=== PATIENT | male | born 2000 | race Caucasian/White ===

== ENCOUNTER 2023-03-10 23:33 | Emergency (ER) | payer BC, SELFPAY ==
[2023-03-10 23:37] VITALS: BP 160/92; PULSE 124; RESP 16; TEMP 36.7; O2SAT 99; BMI 22.7
[2023-03-10 23:43] VITALS: PULSE 107; RESP 20
[2023-03-10 23:45] VITALS: BP 164/97; PULSE 112; RESP 18
--- NOTE | 2023-03-10 23:47 | ECG_ITS ---
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
[2023-03-10 23:48] VITALS: PULSE 110
[2023-03-10 23:50] VITALS: PULSE 107; RESP 14
--- NOTE | 2023-03-10 23:51 | PC.NURSE ---
Pt presents to ER for intermittent episodes of dizziness/weakness associated with warmness and nubness/tingling to fingers and toes Pt states this has been happening for a few days but is becoming more and more common Pt states he was lying in bed tonight and began feeling warm throughout his body and then the symptoms worsen At time of arrival pt is nervous but has no other symptoms Pt denies a hx of cardiac issues and anxiety Pt states he did have a heart murmur when he was young but he was told it had disappeared. Pt takes no medications and has no health history but is aware that both of his parents have high BP
[2023-03-11] VITALS (20 sets, daily range): BP systolic 120–148; BP diastolic 65–93; PULSE 65–120; RESP 7–22; O2SAT 96–99
[2023-03-11 00:46] LABS: Basophils Absolute Auto 0.1 10^3/uL (0.0-0.1); Basophils Percent Auto 1.2 % (0.2-2.0); Eosinophils Absolute Auto 0.2 10^3/uL (0.0-0.7); Eosinophils Percent Auto 3.6 % (0.9-7.0); Hematocrit 43.4 % (42.0-54.0); Immature Granulocytes Abs Auto 0.01 10^3/uL (0.00-0.03); Immature Granulocytes Pct Auto 0.2 % (0.0-0.5); Lymphocytes Absolute Auto 2.9 10^3/uL (1.2-3.8); Lymphocytes Percent Auto 43.8 % (20.5-60.0); Mean Corpuscular HGB Conc 34.6 g/dL (29.9-35.2); Mean Corpuscular Hemoglobin 29.4 pg (25.9-34.0); Mean Corpuscular Volume 84.9 fL (80.0-94.0); Mean Platelet Volume 10.2 fL (9.5-13.5); Monocytes Absolute Auto 0.6 10^3/uL (0.3-0.8); Monocytes Percent Auto 8.3 % (1.7-12.0); Neutrophils Absolute Auto 2.9 10^3/uL (1.4-6.5); Neutrophils Percent Auto 42.9 % (43.0-75.0); Platelet Count 236 10^3/uL (150-450); Red Blood Count 5.11 10^6/uL (4.70-6.10); Red Cell Distribution Width 11.4 % (11.0-15.0); White Blood Count 6.7 10^3/uL (4.0-11.0)
[2023-03-11] MEDS: 0.9 % SODIUM CHLORIDE 1,000 ML 1000 ML IV ×2 (00:52→02:20)
[2023-03-11 01:02] LABS: D Dimer <0.19 mg/L FEU (<=0.59)
[2023-03-11 01:03] LABS: Influenza Virus A Antigen Negative; Influenza Virus B Antigen Negative; Internal Control Within Normal Limits; SARS-CoV-2 Ag NEGATIVE (NEGATIVE)
--- NOTE | 2023-03-11 01:11 | ED.GENADUL1 ---
HPI - General Adult General Chief complaint: Weakness Stated complaint: GENERAL WEAKNESS Time Seen by Provider: 03/10/23 23:54 Source: patient and family Mode of arrival: walk-in Limitations: no limitations History of Present Illness HPI narrative: This 22-year-old male presents for evaluation of episodes of dizziness that have been occurring for the past several days. The patient states that twice while driving to work in the morning he started feeling some tingling in his toes and hands and then started feeling dizzy. He states he feels like the room is spinning. At one point he felt he may need to pull worker because he was going to pass out. He has not actually passed out. Earlier this evening after getting into bed and starting to warm up he had a similar episode while lying down. He had some mild chest pressure during the episode this morning. While lying down earlier he felt that he may vomit or need to have a bowel movement when the symptoms of dizziness were occurring. He has not had a fever. He denies any headache. He had a heart murmur as a child apparently. He denies any abdominal pain. He does use a vape pen. He denies any drug or alcohol use. 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 He denies any shortness of breath. He does not think that he has had Covid 19. He has no lower extremity pain or swelling. He does admit that when he gets up to go to work in the morning he does not have anything to eat or drink. He was formally drinking 3 energy drinks a day but currently has cut back on those and only has them on occasion and only one a day. Related Data Home Medications Medication Instructions Recorded Confirmed No Known Home Medications 03/10/23 03/10/23 Allergies Allergy/AdvReac Type Severity Reaction Status Date / Time No Known Drug Allergies Allergy Verified 03/10/23 23:41 Review of Systems ROS Status of ROS 10 or more systems reviewed and unremarkable except as noted in history and below [facility] Social History Smoking status: Current every day smoker Exam Narrative Exam Narrative: Nurses note and vital signs reviewed and patient is not hypoxic. Blood pressure was noted to be mildly elevated and the patient was tachycardic upon arrival with a pulse in the 120s. During my exam the pulse was in the 90s and the patient was asked to sit up and his pulse went to 1:15, upon standing his pulse went up into the 120s General: The patient appears well and in no apparent distress. Patient is resting comfortably on cart. Skin: Warm, dry, no pallor noted. There is no rash noted. Head: Normocephalic, atraumatic Eye: Normal conjunctiva, no drainage, EOMI. PERRL Ears, Nose, Mouth, and Throat: oral mucosa is moist. Nares patent. Mouth without vesicles. Ear canals patent. Tm's without Erythema Cardiovascular: Regular Rate and Rhythm S1S2, no murmurs appreciated, pulses are brisk and equal bilaterally, pulse increased with sitting and standing Respiratory: Patient is in no distress, no accessory muscle use, lungs are clear to auscultation, no wheezing, rales or rhonchi Back: non-tender, no CVA tenderness bilaterally to percussion. GI: Normal bowel sounds, no tenderness to palpation, no masses appreciated. No rebound, guarding, or rigidity noted. Musculoskeletal: The patient has no evidence of calf tenderness, no pitting edema, symmetrical pulses noted bilaterally Neurological: A&O x4, normal speech Psychiatric: Cooperative Constitutional Vital Signs, click to edit/add: Last Vital Signs Temp 98.1 F 03/10/23 23:37 Pulse 97 H 03/11/23 03:11 Resp 18 03/11/23 03:11 BP 138/77 03/11/23 03:00 Pulse Ox 97 03/11/23 02:50 O2 Del Method Room Air 03/10/23 23:37 Course Vital Signs Vital signs: Vital Signs Temperature 98.1 F 03/10/23 23:37 Pulse Rate 124 H 03/10/23 23:37 Respiratory Rate 16 03/10/23 23:37 Blood Pressure 160/92 H 03/10/23 23:37 Pulse Oximetry 99 03/10/23 23:37 Oxygen Delivery Method Room Air 03/10/23 23:37 Temperature 98.1 F 03/10/23 23:37 Pulse Rate 97 H 03/11/23 03:11 Respiratory Rate 18 03/11/23 03:11 Blood Pressure 138/77 03/11/23 03:00 Pulse Oximetry 97 03/11/23 02:50 Oxygen Delivery Method Room Air 03/10/23 23:37 Medical Decision Making MDM Narrative Medical decision making narrative: This 22-year-old male with a history of a heart murmur as a child requiring sports physicals prior to being able to play sports presents for evaluation of several days of episodes where he has episodes of dizziness. He does not recall ever having had an echocardiogram,. He describes that he was driving on his way to work earlier this week and started having some tingling in his feet and hands and then felt dizzy like he was going to pass out. He did not ultimately pass out and the symptoms resolved. He has had several additional episodes since that time. He denies any chest pain or shortness of breath. He uses a Vape pen but does not smoke cigarettes. He denies alcohol or drug use. He describes these symptoms that occur with change in temperature such as when he is getting warm. He is not having any abdominal pain or back pain. He has not had a fever. He recently moved from [facility] to the [facility] and does not have a local family physician. He is not currently followed by a players club representative. He was noted to be tachycardic at triage. An EKG was done as a sinus tachycardia at 1 10 bpm with a right axis deviation and nonspecific ST changes. These are likely chronic in nature. I do not have a prior EKG for comparison. He was noted to have orthostatic vital signs and with sitting his pulse increased and was standing his pulse increased even more. He did not become dizzy or syncopal with the increase in his pulse. I was unable to appreciate any heart murmur and his pulses were brisk and equal bilaterally. He was given a liter of IV fluid and his pulse did normalize while sitting and lying down but again increased with standing. He was given an additional liter of normal saline. At rest the patient's pulses in the 70s and was standing it goes up to 100. Routine labs are reviewed. He has a normal white count and hemoglobin. His electrolytes are normal. He has a normal troponin and d-dimer. Thyroid-stimulating hormone and magnesium are also normal. CXR is normal. He has not had any episodes of dizziness while in the emergency department. 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 The EKG itself was regular sinus tachycardia. I explained to the patient that I suspect that he either has POTS or some degree of cardiac arrhythmia. He was referred to our local players club representative. He was given a dose of magnesium prior to discharge and a prescription for magnesium to use on a daily basis for the next 30 days. I explained to him that he may require some cardiac monitoring device. I suggested that he rest, not use any caffeinated products, quit vaping and return to emergency department for worsening symptoms, syncope, chest pain or any concerns. Medical Records Medical records narrative: [place] [address] XRay Report Signed Patient: GRETA ELMORE MR#: [id number] : 2000 Acct:[id number] Age/Sex: 22 / M ADM Date: 03/10/23 Loc: ER Attending Dr: Ordering Physician: Juan Edwards Date of Service: 03/11/23 Procedure(s): XR chest 2V Accession Number(s): [id number] cc: Juan Edwards; Physician,Non-Staff M.D.~ The [place] [id number] Patient Name: GRETA ELMORE MRN: [id number] date: 2000 Sex: M Assigned Patient Location: ER Current Patient Location: ER Accession/Order Number: [id number] Exam Date: 03/11/2023 02:18 Report Date: 03/11/2023 03:09 At the request of: JUAN EDWARDS Procedure: XR chest 2V EXAM: XR chest 2V HISTORY: Dizziness COMPARISON: None. TECHNIQUE: Frontal and lateral chest radiographs. FINDINGS: The heart, mediastinum and pulmonary vascularity are within normal limits. The lungs and pleural spaces are clear. The bony thorax is intact and unremarkable. XR/XR chest 2V IMPRESSION: Negative chest x-rays. Lab Data Lab results reviewed: Yes I reviewed the patient's lab results Labs: Lab Results 03/11/23 03/11/23 Range/Units 00:34 00:35 WBC 6.7 (4.0-11.0) 10^3/uL RBC 5.11 (4.70-6.10) 10^6/uL Hgb 15.0 (14.0-18.0) g/dL Hct 43.4 (42.0-54.0) % MCV 84.9 (80.0-94.0) fL MCH 29.4 (25.9-34.0) pg MCHC 34.6 (29.9-35.2) g/dL RDW 11.4 (11.0-15.0) % Plt Count 236 (150-450) 10^3/uL MPV 10.2 (9.5-13.5) fL Neut % (Auto) 42.9 L (43.0-75.0) % Lymph % (Auto) 43.8 (20.5-60.0) % [place] % (Auto) 8.3 (1.7-12.0) % Eos % (Auto) 3.6 (0.9-7.0) % Baso % (Auto) 1.2 (0.2-2.0) % Neut # (Auto) 2.9 (1.4-6.5) 10^3/uL Lymph # (Auto) 2.9 (1.2-3.8) 10^3/uL [place] # (Auto) 0.6 (0.3-0.8) 10^3/uL Eos # (Auto) 0.2 (0.0-0.7) 10^3/uL Baso # (Auto) 0.1 (0.0-0.1) 10^3/uL Abs Immat Gran (auto) 0.01 (0.00-0.03) 10^3/uL Imm/Tot Granulo (auto) 0.2 (0.0-0.5) % D-Dimer <0.19 (<=0.59) mg/L FEU Sodium 142 (136-145) mmol/L Potassium 3.7 (3.5-5.1) mmol/L Chloride 104 (98-107) mmol/L Carbon Dioxide 28.6 (21.0-32.0) mmol/L Anion Gap 13.1 BUN 16.0 (7.0-18.0) mg/dL Creatinine 0.99 (0.70-1.30) mg/dL Est GFR ( Amer) >60 (>=60) Est GFR (Non-Af Amer) >60 (>=60) BUN/Creatinine Ratio 16.2 Glucose 119 H (74-106) mg/dL Calcium 9.6 (8.5-10.1) mg/dL Magnesium 2.2 (1.8-2.4) mg/dL Total Bilirubin 0.4 (0.2-1.0) mg/dL AST 13 L (15-37) U/L ALT 21 (16-63) U/L Alkaline Phosphatase 70 (46-116) U/L Troponin I High Sens <4.0 L (4.0-76.1) pg/mL Total Protein 7.4 (6.4-8.2) g/dL Albumin 4.3 (3.4-5.0) g/dL Globulin 3.1 g/dL Albumin/Globulin Ratio 1.4 TSH & Free T4 Interp 1.249 (0.358-3.740) uIU/mL Urine Color Lt. yellow (YELLOW) Urine Clarity Clear (CLEAR) Urine pH 7.0 (5.0-9.0) Ur Specific [place] <=1.005 A (1.005-1.025) Urine Protein Negative (NEG/TRACE) mg/dL Urine Glucose (UA) Negative (NEGATIVE) mg/dL Urine Ketones Negative (NEGATIVE) mg/dL Urine Occult Blood Negative (NEGATIVE) Urine Nitrite Negative (NEGATIVE) Urine Bilirubin Negative (NEGATIVE) Urine Urobilinogen 0.2 (0.2-1.0) EU/dL Ur Leukocyte Esterase Negative (NEGATIVE) Influenza Type A Ag Negative Influenza Type B Ag Negative SARS-CoV-2 Ag (CV2AG) Negative (NEGATIVE) ECG Data Attestation: I personally reviewed and interpreted this ECG as follows: (Sinus tachycardia at 110 beats for minute, nonspecific ST changes, right axis deviation, no acute ST segment elevation, moderate ST depression is noted in leads 2 and 3 aVF V4 V5 V6, no prior EKGs are available for comparison) Discharge Plan Discharge Chief Complaint: Weakness Clinical Impression: Dizziness, Sinus arrhythmia Patient Disposition: Home, Self-Care Time of Disposition Decision: 03:19 Condition: Good Prescriptions / Home Meds: No Action No Known Home Medications Instructions: Dizziness (ED), POTS (Postural Orthostatic Tachycardia Syndrome) (ED) Stand Alone Forms: Portal Instructions Referrals: Stacey Denney MD [Physician] - As soon as possible (Hx heart murmur, symptomatic sinus arrythmia) Physician,Non-Staff, [Primary Care Provider] - 1 week Discharge Date/Time: 03/11/23 03:45
[2023-03-11 01:44] LABS: Bilirubin Urine NEGATIVE (NEGATIVE); Blood Urine NEGATIVE (NEGATIVE); Clarity Urine CLEAR (CLEAR); Color Urine LT. YELLOW (YELLOW); Glucose Urine UA NEGATIVE (NEGATIVE); Ketones Urine NEGATIVE (NEGATIVE); Leukocyte Esterase Urine NEGATIVE (NEGATIVE); Nitrite Urine NEGATIVE (NEGATIVE); Protein Urine NEGATIVE (NEG/TRACE); Specific Gravity Urine <=1.005 (1.005-1.025); Urobilinogen Urine 0.2 EU/dL (0.2-1.0)
[2023-03-11 01:47] LABS: Urine Microscopic Indicated NO
--- NOTE | 2023-03-11 02:08 | XR_ITS ---
The [place] [id number] Patient Name: GRETA ELMORE MRN: [id number] date: 2000 Sex: M Assigned Patient Location: ER Current Patient Location: ER Accession/Order Number: [id number] Exam Date: 03/11/2023 02:18 Report Date: 03/11/2023 03:09 At the request of: JUAN MARKER Procedure: XR chest 2V EXAM: XR chest 2V HISTORY: Dizziness COMPARISON: None. TECHNIQUE: Frontal and lateral chest radiographs. FINDINGS: The heart, mediastinum and pulmonary vascularity are within normal limits. The lungs and pleural spaces are clear. The bony thorax is intact and unremarkable. XR/XR chest 2V IMPRESSION: Negative chest x-rays. Electronically authenticated by: CON ZENDEJAS Date: 03/11/2023 03:09
[2023-03-11 02:42] LABS: Alanine Aminotransferase 21 U/L (16-63); Albumin Globulin Ratio 1.4; Albumin Level 4.3 g/dL (3.4-5.0); Alkaline Phosphatase 70 U/L (46-116); Anion Gap 13.1; Aspartate Amino Transferase 13 U/L (15-37); BUN Creatinine Ratio 16.2; Bilirubin Total 0.4 mg/dL (0.2-1.0); Calcium 9.6 mg/dL (8.5-10.1); Carbon Dioxide 28.6 mmol/L (21.0-32.0); Chloride 104 mmol/L (98-107); Estimated GFR (African America >60 (>=60); Estimated GFR (Non-African Ame >60 (>=60); Globulin 3.1 g/dL; Glucose 119 mg/dL (74-106); Potassium 3.7 mmol/L (3.5-5.1); Sodium 142 mmol/L (136-145); Total Protein 7.4 g/dL (6.4-8.2); Troponin I High Sensitivity <4.0 pg/mL (4.0-76.1)
[2023-03-11] MEDS: MAGNESIUM OXIDE 400 MG TABLET PO (03:35)
[2023-03-11 03:40] LABS: Magnesium 2.2 mg/dL (1.8-2.4); TSH W/ REFLEX FT4 1.249 uIU/mL (0.358-3.740)
== END 2023-03-11 03:45 | disposition home or self-care (01) ==
PROVIDERS: Emergency Provider Emergency Medicine
DX: R42 Dizziness and giddiness (principal); I49.8 Other specified cardiac arrhythmias; F17.210 Nicotine dependence, cigarettes, uncomplicated; F17.290 Nicotine dependence, other tobacco product, uncomplicated
CPT/HCPCS: 36415; 71046; 80053; 81003; 83735; 84443; 84484; 85025; 85378; 87635; 87804; 87811; 93005; 96360; 96361; 99285

== ENCOUNTER 2023-03-11 10:45 | Emergency (ER) | payer BC, SELFPAY ==
[2023-03-11] VITALS (13 sets, daily range): BP systolic 118–159; BP diastolic 70–109; PULSE 67–120; RESP 11–23; TEMP 36.9; O2SAT 96–99; BMI 23.5
--- NOTE | 2023-03-11 11:14 | ED.GENADUL1 ---
HPI - General Adult General Chief complaint: Dizziness Stated complaint: DIZZINESS Time Seen by Provider: 03/11/23 11:09 History of Present Illness HPI narrative: patient here for continuation of dizziness type symptoms. He was seen yesterday by Dr. Edwards and underwent a very thorough complete examination and workup. Essentially the workup was negative with the exception some vital signs that changed and it was suggested that he might have pots condition. He was referred to cardiiology but is not follow-up as of yet. He's not having any new symptoms. He was given some fluids yesterday and he did better. Today his pulse is ninety-three whereas yesterday he was tachycardic.patient also admits his dizziness is worse today. He says when he lays down and sometimes just feels like his head is spinning and whirling. He's not had any head trauma injury or concussion syndromes recently. Related Data Home Medications Medication Instructions Recorded Confirmed No Known Home Medications 03/10/23 03/10/23 Allergies Allergy/AdvReac Type Severity Reaction Status Date / Time No Known Drug Allergies Allergy Verified 03/11/23 10:58 [facility] Social History Smoking status: Current every day smoker Exam Narrative Exam Narrative: awake alert somewhat apprehensive. Orthostatic vital signs did show a mild decrease in his blood pressure systolic by fifteen points and his heart rate does go up again from 72-120. His EKG still confirms sinus tachycardia but there is no abnormality of his QT interval. He does have sinus arrhythmia. There is no ST segment elevation or evidence of ischemia. Extremity does not show any evidence of new ENT type infections. With left lateral gaze he does have some horizontal nystagmus. Pupillary light rresponse is normal. The rest of cranial nerves are normal as well. Neck is soft and supple there is no meningeal irritation. Heart rate and rhythm were consistent with sinus arrhythmia which was noted on his monitor while I was examining and interviewing the patient as well. Constitutional Vital Signs, click to edit/add: Last Vital Signs Temp 98.5 F 03/11/23 10:58 Pulse 93 H 03/11/23 10:58 Resp 18 03/11/23 10:58 BP 130/89 03/11/23 10:58 Pulse Ox 99 03/11/23 10:58 O2 Del Method Room Air 03/11/23 10:58 Course Vital Signs Vital signs: Vital Signs Temperature 98.5 F 03/11/23 10:58 Pulse Rate 93 H 03/11/23 10:58 Respiratory Rate 18 03/11/23 10:58 Blood Pressure 130/89 03/11/23 10:58 Pulse Oximetry 99 03/11/23 10:58 Oxygen Delivery Method Room Air 03/11/23 10:58 Temperature 98.5 F 03/11/23 10:58 Pulse Rate 93 H 03/11/23 10:58 Respiratory Rate 18 03/11/23 10:58 Blood Pressure 130/89 03/11/23 10:58 Pulse Oximetry 99 03/11/23 10:58 Oxygen Delivery Method Room Air 03/11/23 10:58 Medical Decision Making MDM Narrative Medical decision making narrative: this patient seems to have some autonomic dysfunction orthostatic hypotension and dizziness. I will go and do a CT scan. In fact the scan is negative for any acute process. I'm recommending that we go ahead and start him on some Antivert. We'll have him off work for at least the next forty-eight hours. 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 While he may have pots I don't feel comfortable or appropriate starting him on medications at this time. Discharge Plan Discharge Chief Complaint: Dizziness Clinical Impression: Dysautonomia orthostatic hypotension syndrome, Vertigo Patient Disposition: Home, Self-Care Time of Disposition Decision: 13:02 Prescriptions / Home Meds: No Action No Known Home Medications Additional Instructions: Antivert, restrict activity bedrest with plenty of fluids as much as possible next forty-eight hours. Follow-up primary care and cardiology as discussed Stand Alone Forms: Portal Instructions Referrals: Physician,Non-Staff, MD [Primary Care Provider] - 1 week
--- NOTE | 2023-03-11 11:15 | ECG_ITS ---
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
--- OUTSIDE RECORDS SUMMARY | 2023-03-11 11:19 | XMS_ITS | CCD ---
Author Name Unknown Address [address] [place] [address] Organization [facility] Team Providers Care Appliance Tester Name Role Phone LALIT WILLARD Chavez Attending Unavailable Results Test Name Value Interpretation Reference Range Facil ity In office Testingon 05-07-19 23 In office Testing [id number]#[id number] :127 [facility] In office Testingon 02-09-20 22 In office Testing [id number]#[id number] :127 [facility] Encounters Encounter Date Encounter Type Care Provider Facility Start: 07-07-2022 ambulatory WILLARD Woodey Scott [place] Faci lity:[facility] Start: 06-21-2022 ambulatory WILLARD Navya COHN Facili ty:[facility] Payers Date Payer Category Payer Unknown [id number] Unknown [id number] Summary Purpose Family History No Family History Records Found Advance Directives No Advanced Directives Records Found Additional Source Comments (unrecognized sect ion and content) No Status Records Found INFORMATION SOURCE (unrecogn ized section and content) DATE CREATED AUTHOR 07/05/2022 [facility] FOR RECORDS PERTAINING TO PATIENTS WHO ARE OR HAVE BEEN ENROLLED IN A CHEMICAL DEPENDENCY/SUBSTANCEABUSE PROGRAM, SOME INFORMATION MAY BE OMITTED. This clinical summary was aggregated from multiple sources. Caution should be exercised in using it in the provision of clinical care. This summary normalizes information from multiple sources, and as a consequence, information in this document may materially change the coding, format and clinical context of patient data. In addition, data may be omitted in some cases. CLINICAL DECISIONS SHOULD BE BASED ON THE PRIMARY CLINICAL RECORDS. [facility]. provides no warranty or guarantee of the accuracy or completeness of information in this document.
[2023-03-11 11:34] LABS: Basophils Absolute Auto 0.1 10^3/uL (0.0-0.1); Basophils Percent Auto 0.9 % (0.2-2.0); Eosinophils Absolute Auto 0.1 10^3/uL (0.0-0.7); Eosinophils Percent Auto 1.4 % (0.9-7.0); Hematocrit 41.3 % (42.0-54.0); Hemoglobin 14.3 g/dL (14.0-18.0); Immature Granulocytes Abs Auto 0.02 10^3/uL (0.00-0.03); Immature Granulocytes Pct Auto 0.3 % (0.0-0.5); Lymphocytes Absolute Auto 2.3 10^3/uL (1.2-3.8); Lymphocytes Percent Auto 29.3 % (20.5-60.0); Mean Corpuscular HGB Conc 34.6 g/dL (29.9-35.2); Mean Corpuscular Hemoglobin 29.2 pg (25.9-34.0); Mean Corpuscular Volume 84.3 fL (80.0-94.0); Mean Platelet Volume 10.1 fL (9.5-13.5); Monocytes Absolute Auto 0.6 10^3/uL (0.3-0.8); Neutrophils Absolute Auto 4.9 10^3/uL (1.4-6.5); Neutrophils Percent Auto 61.1 % (43.0-75.0); Platelet Count 241 10^3/uL (150-450); Red Cell Distribution Width 11.5 % (11.0-15.0)
--- NOTE | 2023-03-11 12:01 | CT_ITS ---
The [address] [address] Patient Name: GRETA ELMORE MRN: [id number] date: 2000 Sex: M Assigned Patient Location: ER Current Patient Location: ER Accession/Order Number: [id number] Exam Date: 03/11/2023 12:08 Report Date: 03/11/2023 12:21 At the request of: AGNES SANTOS Procedure: CT head/brain wo con EXAM: CT head/brain wo con HISTORY: vertigo/nystagmus COMPARISON: None. TECHNIQUE: Axial CT images were obtained of the head without intravenous contrast. Multiplanar reconstructions were performed. FINDINGS: No acute intracranial hemorrhage. No acute loss of oakes/white differentiation. The ventricles and sulci are normal in appearance. The osseous structures are unremarkable. No soft tissue abnormality identified. The paranasal sinuses and mastoid air cells are clear. CT/CT head/brain wo con IMPRESSION: 1. No acute intracranial abnormality. Electronically authenticated by: RENETTA MAHAN Date: 03/11/2023 12:21
[2023-03-11 12:22] LABS: Anion Gap 13.5; BUN Creatinine Ratio 10.9; Carbon Dioxide 28.5 mmol/L (21.0-32.0); Chloride 104 mmol/L (98-107); Estimated GFR (African America >60 (>=60); Estimated GFR (Non-African Ame >60 (>=60); Glucose 99 mg/dL (74-106); Sodium 142 mmol/L (136-145)
== END 2023-03-11 13:13 | disposition home or self-care (01) ==
PROVIDERS: Emergency Provider Emergency Medicine Emergency Medical Services
DX: R42 Dizziness and giddiness (principal); G90.1 Familial dysautonomia [Riley-Day]; I95.1 Orthostatic hypotension; F17.210 Nicotine dependence, cigarettes, uncomplicated
CPT/HCPCS: 36415; 70450; 80048; 85025; 93005; 99285

== ENCOUNTER 2023-04-07 07:04 | Outpatient (OUT) | payer BC, SELFPAY ==
--- OUTSIDE RECORDS SUMMARY | 2023-04-07 07:07 | XMS_ITS | CCD ---
Author Name Unknown Address [address] [place] [address] Organization [facility] Care Team Providers Care Test Engineering Technician Name Role Phone Navya COHN Primary Care Physician AHSAN PABON Attending Unavailable LALIT, WILLARD Chavez Attending Unavailable WILLARD COHN Attending Unavailable LALIT, WILLARD Chavez Attending Unavailable Delia BUTLER Attending Unavailable Medications Current Medications Medication Drug Class(es) Dates Sig (Normalized) Sig (Original) meclizine hydrochloride 25 mg oral tablet (1 source) Antiemetic Start: 03-15-2023 take 1 tablet by mouth three times daily as needed for dizziness meclizine 25 mg Tab 25 mg = 1 tab(s), Oral, TID, PRN for dizziness, # 60 tab(s), Refills(s) 1, Pharmacy: [facility]/pharmacy #[id number], 169.5, cm, 03/15/23 13:15:00 EST, Height/Length Dosing, 64.8, kg, 03/15/23 13:15:00 EST, Weight Dosing Start Date: 03/15/23 Status: Ordered Problems Active Problems Problem Classification Problem Date Documented Date Episodic/Chronic Cardiac dysrhythmias (4 sources) Tachyarrhythmia ; Translations: [Tachycardia, unspecified] Onset: 03-15-2023 Episodic Conditions associated with dizziness or vertigo (4 sources) Dizziness and giddiness; Translations: [Dizziness and giddiness] Onset: 03-15-2023 Episodic Other circulatory disease (2 sources) Postural orthostatic tachycardia syndrome ; Translations: [Postural orthostatic tachycardia syndrome [POTS]] Onset: 03-15-2023 Episodic Other nervous system disorders (1 source) Paresthesia; Translations: [Paresthesia of skin] Onset: 03-15-2023 Episodic Other nervous system disorders (1 source) Paresthesia of hand 03-15-2023 Episodic Residual codes; unclassified (1 source) Body mass index 20-24 - normal; Translations: [Body mass index (BMI) 22.0-22.9, adult] Onset: 03-15-2023 Episodic Syncope (2 sources) Syncope and collapse; Translations: [Syncope and collapse] Onset: 03-24-2023 Episodic Past or Other Problems Problem Classification Problem Date Documented Da te Episodic/Chronic Unclassified (1 source) None (qualifier value) 07-27-2015 Results Test Name Value Interpretation Reference Range Facil ity Telemedicineon 03-24-2023 Telemedicine [id number] Hollis Elmore 2000 M Date Provider Department Center 03/24/2023 AHSAN DUMAS CARD [facility] Family History Problem Relation Age of Onset No Known Problems Mother No Known Problems Father Family Status - Relation Status Age at Mother Father Level of Service:76349 AL OFFICE/OUTPATIENT NEW MODERATE MDM 45 MINUTES Reason for Visit and Comments: New Patient [632] Dizziness [019887] Normal [facility] Family Medicine Office/Clini c Noteon 03-16-2023 Family Medicine Office/Clinic Note Chief Complaint ER f/u HPI Staff [facility] ER F/U 03/11 Pt was evaluated twice at [facility] for dizziness. The work up at the first visit was essentially normal. Pt did have some PACs and short pauses on the threat monitoring analyst. It was suspected that he either has POTS or some degree of cardiac arrhythmia, he was referred to their local treasury representative. Second visit pt was tx with Meclizine for Vertigo. CT Brain - No acute intracranial abnormality Pt states the Meclizine helps a lot with the dizziness. He states the last couple of days he has felt a lot better. Riding in the car causes him to feel warm and off, states at home he feels fine. Cardiology appt is scheduled 03/24. He is unsure of who he is seeing. History of Present Illness The patient or their guardian verbally consented to allow Mihaela Lennon to record this visit. Hollis Elmore is a 22-year-old male who presents today for an ER follow-up x2. He was seen at [facility] twice on 03/11/2023. Once for dizziness. On the first visit on telemetry, he had some PACs and short pauses. They suspected POTS or another cardiac arrhythmia, so they took him to cardiology. He returned with persistent dizziness and they gave him meclizine for diagnosed vertigo. They did do a CT of the brain which showed no acute intracranial abnormality. The meclizine is very effective for the dizziness. The last couple of days, he has felt a lot better. We were able to find documentation on meclizine from the hospital visits. Findings of the CT of the head showed no acute intracranial hemorrhage, no acute loss of oakes-white differentiation. The ventricles and sulci appeared normal. Paraspinal sinuses and mastoid air cells, clear osseous structures, unremarkable with no soft tissue abnormalities identified. Reading the first ER note, he admitted that earlier that week he drove him to work. He would have some tingling in his hands and feet and felt dizzy like he was going to pass out. He did not pass out, however, and symptoms resolved. Those episodes happened several more times. He did note that symptoms seemed to happen more frequently when he would get hot. He was tachycardic in triage. In the ER, an EKG showed sinus tachycardia at 110 bpm with a right axis deviation and nonspecific ST changes, likely chronic in nature, but there was no EKG for comparison. He was noted to have orthostatic vital signs in the ER also but did not become dizzy or syncopal with increase in his pulse orthostatically. No heart murmur was auscultated there; however, he did report being told that as a child he had a heart murmur, but never an echocardiogram. He was given a liter of fluid and his poor pulse normalized while sitting and lying down, but again increased with standing. They gave him another additional liter of normal saline, and this continued to happen. CBC was normal. Electrolytes normal. Normal troponin and D-dimer. TSH and magnesium are also normal. Chest x-ray normal. EKG itself was regular, sinus tachycardia, but threat monitoring analyst showed PACs and some short pauses at times. He was given a dose of magnesium at the ER and then given a prescription for a daily dose of magnesium for the next 30 days. The ER visit later on 03/11/2023 says he was there for continued or persistent dizziness. The dizziness was room spinning in nature. Given the autonomic dysfunction with orthostatic hypotension and dizziness, they did do the CT scan which was negative. They sent him home with a prescription for Antivert and wrote him off for work for a couple of days. The patient reports an improvement in his overall health and denies any recent illness or upper respiratory infection. He describes experiencing warm, tingling sensations in his extremities over the past few weeks, distinct from any feelings of vertigo. On the evening of 03/11/2023, he recounts returning home from work, resting, taking a nap, eating dinner, and showering. Upon exiting the shower, he experienced a sensation of room-spinning vertigo. He laid down and felt as if he were intoxicated. He denies experiencing any such episodes of dizziness during his late adolescence. He denies any shortness of breath or heart palpitations. He states that in high school, he would feel palpitations or arrhythmias. The patient reports experiencing bearable chest pressure, which he believes is associated with his shortness of breath. He mentions that these symptoms have never necessitated a visit to a doctor. He finds relief from dizziness with the use of meclizine. However, he experiences persistent upset stomach a few days post-symptoms. He contacted cardiology the day after his symptoms but did not receive a response until 03/24/2023 at [facility]. He was referred to treasury representative, Dr. Denney. Upon discharge, the patient returned home and experienced severe discomfort, similar to his condition upon admission. He was reassured of his recovery and attempted to sleep through the discomfort. The following day, he was informed that h (more content not included)... [facility] Comment on above: Result Comment: Elec tronically Signed By: Navya COHN CNP\.br\Date and Time Signed: 03/16/23 07:58 EST\.br\Electronically Co-Signed By: Robi Whiting\.br\Date and Time Co-Signed: 03/15/23 16:11 EST Ambulatory Visit Summaryon 0 03-15-2023 Ambulatory Visit Summary HOLLIS ELMORE :2000 Visit Date:03/15/2023 Ambulatory Visit Instructions Your Diagnosis Sinus tachycardia POTS (postural orthostatic tachycardia syndrome) Vertigo Hand paresthesia BMI 22.0-22.9, adult Your Care Team Attending Physician - Navya COHN CNP Primary Care Physician - Navya COHN CNP This Is Your Medications List meclizine (meclizine 25 mg Tab) Procedures Performed None. Discharge Vitals Heart Rate (Peripheral) 110 Blood Pressure 132/80 Height 169.5 cm Height 67 in Weight 64.8 kg Weight 142.56 lb BMI 22.55 What to do next Scheduled Follow-Up Appointments 2023 4:20 PM EST With: Navya COHN CNP Where: [facility] Patient Educationon 03-15-19 Patient Education Pulmonary Medicine E-Cigarette or Vaping Use-Associated Lung Injury E-cigarette or vaping use-associated lung injury (EVALI) is a lung condition in people who smoke electronic cigarettes (vape). Electronic cigarettes are commonly called e-cigarettes. EVALI is not a lung infection. EVALI damages lung tissue directly. E-cigarettes that deliver the active ingredient in marijuana (THC) are associated with more cases of EVALI. This may be from a substance called vitamin E acetate that is often used in e-cigarettes that contain THC. Vitamin E acetate causes injury when inhaled into the lungs. Other harmful ingredients in e-cigarettes may also cause lung injury. What are the causes? This condition happens when a person vapes e-cigarettes. The exact cause of EVALI is not known. Vitamin E acetate is most likely a primary cause, but other ingredients may play a role. E-cigarettes that deliver only nicotine may also damage the lungs. What increases the risk? You are more likely to develop this condition if: ? You use an e-cigarette to vape marijuana. ? You use an e-cigarette sold to you from someone else, instead of buying it at a store. ? You have an underlying lung disease, such as asthma or chronic obstructive pulmonary disease (COPD). ? You have heart disease or high blood pressure. ? You currently smoke cigarettes or used to smoke them. What are the signs or symptoms? Symptoms of this condition include: ? Cough. ? Shortness of breath. ? Chest pain. ? Stomach pain. ? Nausea or vomiting. ? Fever and chills. ? Weight loss. Symptoms of EVALI may start days or weeks after vaping. How is this diagnosed? Your health care provider may suspect EVALI if you have signs and symptoms of the condition after vaping. There is no specific test for EVALI. The symptoms are similar to other lung diseases. You may have imaging tests to rule out other conditions. A chest X-ray or CT scan may also be done to get more information about your condition. How is this treated? There is no specific treatment for EVALI. Most people need to get care in the hospital. This condition may be treated with oxygen and medicines to reduce swelling in the lungs and airways. In severe cases, a respirator may be needed to help with breathing. Follow these instructions at home: ? Take cvtq-nbl-[id number] and prescription medicines only as told by your health care provider. ? Return to your normal activities as told by your health care provider. Ask your health care provider what activities are safe for you. ? Do not use any products that contain nicotine or tobacco. These products include cigarettes, chewing tobacco, and vaping devices, such as e-cigarettes. If you need help quitting, ask your health care provider. ? Keep all follow-up visits. This is important. Where to find more information ? [place] [employer]: www.lung.org ? Centers for Disease Control and Prevention: www.cdc.gov Contact a health care provider if: ? You have any signs or symptoms of EVALI after vaping. Get help right away if: ? You have chest pain or trouble breathing. These symptoms may represent an emergency. Get medical help right away. Call 911. ? Do not wait to see if the symptoms will go away. ? Do not drive yourself to the hospital. Summary ? EVALI is a lung condition associated with vaping e-cigarettes. ? The exact cause of EVALI is not known. ? Signs and symptoms of EVALI may start days or weeks after vaping and are similar to other lung conditions. ? There is no test to diagnose EVALI. ? There is no specific treatment for EVALI. Most people need care in the hospital. This information is not intended to replace advice given to you by your health care provider. Make sure you discuss any questions you have with your health care provider. Document Revised: 11/11/2021 Document Reviewed: 11/11/2021 [employer] Patient Education ? 2022 [employer]. [facility]enton 03-10-2023 Consent [id number] #[id number] [facility] In office Testingon 03-10-19 24 In office Testing [id number] 4#1.00TIFF [facility] In office Testingon 05-07-19 23 In office Testing [id number] 5#[id number]:127 [facility] Vital Signs Date Time Vital Sign Value Performing Clinician Faci lity 03-15-2023 13:14-0500 Blood Pressure Location Navyageoffrey COHN [facility] 03-15-2023 13:14-0500 Diastolic blood pressure 80 mm[Hg] Navya COHN [facility] 03-15-2023 13:14-0500 Heart rate 110 /min Navya COHN [facility] 03-15-2023 13:14-0500 SaO2% (BldA) [Mass fraction] 99 % Navya COHN [facility] 03-15-2023 13:14-0500 Systolic blood pressure 132 mm[Hg] Navya LALIT [facility] Encounters Encounter Date Encounter Type Care Provider Facility Start: 04-07-2023 ambulatory BATCH FREEZER Navya COHN Faci lity:[facility] Start: 03-24-2023 End: 03-24-2023 ambulatory [facility] Start: 03-15-2023 End: 03-16-2023 ambulatory BATCH FREEZER Navya COHN Facility:[facility] Start: 03-15-2023 End: 03-15-2023 Patient encounter procedure Navya COHN [facility] Start: 03-10-2023 End: 03-11-2023 ambulatory Delia BUTLER Facility:[facility] Start: 07-07-2022 ambulatory BATCH FREEZER Navya COHN Faci lity:[facility] Start: 06-21-2022 ambulatory BATCH FREEZER Navya COHN Facili ty:[facility] Procedures Date Procedure Procedure Detail Performing Clinician None (qualifier value) Nayva COHN Immunizations Immunization Date Immunization Notes Care Provider Fa cility 03-05-2019 Human Papillomavirus 9-valent vaccine Navya ROBLONDON [facility] 11-27-2018 meningococcal polysaccharide (groups A, C, Y and W-135) diphtheria toxoid conjugate vaccine (MCV4P) Navya ROBLONDON [facility] 11-21-2018 HPV, unspecified formulation Navya ROBLONDON [facility] 11-21-2018 Human Papillomavirus 9-valent vaccine Navya ROBLONDON [facility] 09-14-2017 HPV, unspecified formulation Navya ROBUCK [facility] 09-11-2013 tetanus toxoid, redu yunier diphtheria toxoid, and acellular pertussis vaccine, adsorbed Navya ROBUCK [facility] 05-05-2006 diphtheria, tetanus toxoids and acellular pertussis vaccine Navya ROBUCK [facility] 05-05-2006 measles, mumps and rubella virus vaccine Navya ROBUCK [facility] 05-05-2006 poliovirus vaccine, unspecified formulation Navya [facility]CK [facility] 11-07-2001 measles, mumps and rubella virus vaccine Navya ROBUCK [facility] 11-07-2001 varicella virus vaccine Martinez y ROBUCK [facility] 07-18-2001 hepatitis B vaccine, adult dosage Navya ROBUCK [facility] 05-03-2001 diphtheria, tetanus toxoids and acellular pertussis vaccine Navya ROBUCK [facility] 05-03-2001 haemophilus influenz ae type b vaccine, HbOC conjugate Navya ROBUCK [facility] 05-03-2001 pneumococcal conjuga te vaccine, 13 valent Navya ROBUCK [facility] 03-02-2001 diphtheria, tetanus toxoids and acellular pertussis vaccine Navya ROBUCK [facility] 03-02-2001 haemophilus influenz ae type b vaccine, HbOC conjugate Navya ROBUCK [facility] 03-02-2001 pneumococcal conjuga te vaccine, 13 valent Navya ROBUCK [facility] 03-02-2001 poliovirus vaccine, unspecified formulation Navya RO[facility]CK [facility] 2000 diphtheria, tetanus toxoids and acellular pertussis vaccine Navya ROBUCK [facility] 2000 haemophilus influenz ae type b vaccine, HbOC conjugate Navay ROBUCK [facility] 2000 hepatitis B vaccine, adult dosage Navya ROBUCK [facility] 2000 poliovirus vaccine, unspecified formulation Navya COHN [facility] 2000 hepatitis B vaccine, adult dosage Navya COHN [facility] NEGATED: Highlighted row has not occurred!03-15-2023 influenza virus vaccine, unspecified formulation Navya COHN [facility] Payers Date Payer Category Payer Unknown [id number] 2000 Unknown [id number] 2000 Unknown [id number] 2000 Unknown [id number] Unknown [id number] Social History Date Type Detail Facility Tobacco Current vaping o r e-cigarette use Smokeless Tobacco Use:. Vaping, Ready to change: No. Household tobacco concerns: No. Yes [facility] Tobacco smoking status No Smoking Status Entered [facility] Sex Assigned At Male [facility] Progress note 03-24-2023 Note Date & Type Note Facility 03-24-2023 Note Cardiovascular Medic ine [facility] SUBJECTIVE Chief Complaint Patient presents with New Patient Dizziness HPI Hollis Elmore is a 22 y.o. male is being evaluated as a new patient. He was recently at [facility] for c/o dizziness x2. He was dx'd with suspected autonomic dysfunction, orthostatic hypotension or POTS. He initially presented to the ER with c/o dizziness while driving, he thinks he may have been close to passing out. During an exam in the ER, it was reported that his HR was noted to increase from 90 laying to 120s while standing. He received IV fluids and his HR variation improved. Today he states he is feeling well. He has been avoiding energy drinks and he has been trying to cut back on vaping. Denies c/o CP, dyspnea, orthopnea, PND, LE edema, dizziness/LH, palpitations, syncope. ER report from [facility] 03/11/2023 [facility] narrative: patient here for continuation of dizziness type symptoms. He was seen yesterday by Dr. Edwards and underwent a very thorough complete examination and workup. Essentially the workup was negative with the exception some vital signs that changed and it was suggested that he might have pots condition. He was referred to cardiiology but is not follow-up as of yet. He's not having any new symptoms. He was given some fluids yesterday and he did better. Today his pulse is ninety-three whereas yesterday he was tachycardic.patient also admits his dizziness is worse today. He says when he lays down and sometimes just feels like his head is spinning and whirling. He's not had any head trauma injury or concussion syndromes recently. MDM Narrative Medical decision making narrative: this patient seems to have some autonomic dysfunction orthostatic hypotension and dizziness. I will go and do a CT scan. In fact the scan is negative for any acute process. I'm recommending that we go ahead and start him on some Antivert. We'll have him off work for at least the next forty-eight hours. He's trying to follow up with the primary care physician and treasury representative. While he may have pots I don't feel comfortable or appropriate starting him on medications at this time. ER report from [facility] 03/10/2023 HPI narrative: This 22-year-old male presents for evaluation of episodes of dizziness that have been occurring for the past several days. The patient states that twice while driving to work in the morning he started feeling some tingling in his toes and hands and then started feeling dizzy. He states he feels like the room is spinning. At one point he felt he may need to gizzard puller because he was going to pass out. He has not actually passed out. Earlier this evening after getting into bed and starting to warm up he had a similar episode while lying down. He had some mild chest pressure during the episode this morning. While lying down earlier he felt that he may vomit or need to have a bowel movement when the symptoms of dizziness were occurring. He has not had a fever. He denies any headache. He had a heart murmur as a child apparently. He denies any abdominal pain. He does use a vape pen. He denies any drug or alcohol use. 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 He denies any shortness of breath. He does not think that he has had Covid 19. He has no lower extremity pain or swelling. He does admit that when he gets up to go to work in the morning he does not have anything to eat or drink. He was formally drinking 3 energy drinks a day but currently has cut back on those and only has them on occasion and only one a day. Medical Decision Making MDM Narrative Medical decision making narrative: This 22-year-old male with a history of a heart murmur as a child requiring sports physicals prior to being able to play sports presents for evaluation of several days of episodes where he has episodes of dizziness. He does not recall ever having had an echocardiogram,. He describes that he was driving on his way to work earlier this week and started having some tingling in his feet and hands and then felt dizzy like he was going to pass out. He did not ultimately pass out and the symptoms resolved. He has had several additional episodes since that time. He denies any chest pain or shortness of breath. He uses a Vape pen but does not smoke cigarettes. He denies alcohol or drug use. He describes these symptoms that occur with change in temperature such as when he is getting warm. He is not having any abdominal pain or back pain. He has not had a fever. He recently moved from [facility] to the [facility] and does not have a local family physician. He is not currently followed by a treasury representative. He was noted to be tachycardic at triage. An EKG was done as a sinus ta (more content not included)... [facility] Progress note 03-24-2023 Note Date & Type Note Facility 03-24-2023 Note New patient being se en via telemedicine for follow up [facility] ED for dizziness. He was given RX for magnesium and meclizine (prn). Says he's feeling better, especially after getting humidifiers for his house. Vapes daily. Denies chest pain, palpitations, and SOB. Obtained orthostatic vitals in the office today. Says he feels almost back to normal . 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 Review of Systems Neurological: Positive for light-headedness. All other systems reviewed and are negative. [facility] Hospital Discharge instructions 03-15-2023 Note Date & Type Note Facility 03-15-2023 Hospital Discharg e instructions Patient Education 03/15/2023 13:23:41 E-Cigarette or Vaping Use-Associated Lung Injury E-Cigarette or Vaping Use-Associated Lung Injury E-cigarette or vaping use-associated lung injury (EVALI) is a lung condition in people who smoke electronic cigarettes (vape). Electronic cigarettes are commonly called e-cigarettes. EVALI is not a lung infection. EVALI damages lung tissue directly. E-cigarettes that deliver the active ingredient in marijuana (THC) are associated with more cases of EVALI. This may be from a substance called vitamin E acetate that is often used in e-cigarettes that contain THC. Vitamin E acetate causes injury when inhaled into the lungs. Other harmful ingredients in e-cigarettes may also cause lung injury. What are the causes? This condition happens when a person vapes e-cigarettes. The exact cause of EVALI is not known. Vitamin E acetate is most likely a primary cause, but other ingredients may play a role. E-cigarettes that deliver only nicotine may also damage the lungs. What increases the risk? You are more likely to develop this condition if: You use an e-cigarette to vape marijuana. You use an e-cigarette sold to you from someone else, instead of buying it at a store. You have an underlying lung disease, such as asthma or chronic obstructive pulmonary disease (COPD). You have heart disease or high blood pressure. You currently smoke cigarettes or used to smoke them. What are the signs or symptoms? Symptoms of this condition include: Cough. Shortness of breath. Chest pain. Stomach pain. Nausea or vomiting. Fever and chills. Weight loss. Symptoms of EVALI may start days or weeks after vaping. How is this diagnosed? Your health care provider may suspect EVALI if you have signs and symptoms of the condition after vaping. There is no specific test for EVALI. The symptoms are similar to other lung diseases. You may have imaging tests to rule out other conditions. A chest X-ray or CT scan may also be done to get more information about your condition. How is this treated? There is no specific treatment for EVALI. Most people need to get care in the hospital. This condition may be treated with oxygen and medicines to reduce swelling in the lungs and airways. In severe cases, a respirator may be needed to help with breathing. Follow these instructions at home: Take xygr-eog-nmfmett and prescription medicines only as told by your health care provider. Return to your normal activities as told by your health care provider. Ask your health care provider what activities are safe for you. Do not use any products that contain nicotine or tobacco. These products include cigarettes, chewing tobacco, and vaping devices, such as e-cigarettes. If you need help quitting, ask your health care provider. Keep all follow-up visits. This is important. Where to find more information [place] [employer]: www.lung.org Centers for Disease Control and Prevention: www.cdc.gov Contact a health care provider if: You have any signs or symptoms of EVALI after vaping. Get help right away if: You have chest pain or trouble breathing. These symptoms may represent an emergency. Get medical help right away. Call 911. Do not wait to see if the symptoms will go away. Do not drive yourself to the hospital. Summary EVALI is a lung condition associated with vaping e-cigarettes. The exact cause of EVALI is not known. Signs and symptoms of EVALI may start days or weeks after vaping and are similar to other lung conditions. There is no test to diagnose EVALI. There is no specific treatment for EVALI. Most people need care in the hospital. This information is not intended to replace advice given to you by your health care provider. Make sure you discuss any questions you have with your health care provider. Document Revised: 11/11/2021 Document Reviewed: 11/11/2021 [employer] Patient Education 2022 [employer] Follow Up Care 03/14/2023 07:21:58 With:Navya COHN CNP Address: [address] [place] [phone]- When:Within 3 Week(s) [facility] Evaluation + Plan note Note Date & Type Note Facility Evaluation + Plan note Future Appointments Appointment Date:04/07/2023 04:20:00 PM Scheduled Provider:Navya COHN CNP Location:[facility] Appointment Type:FM [facility] Hospital course Narrative Note Date & Type Note Facility Hospital course Narrative No data available for this section [facility] Progress note Note Date & Type Note Facility Progress note No data available for this section [facility] Summary Purpose Family History No Family History Records Found Advance Directives No Advanced Directives Records FoundNo Advanced Directives Records Found Additional Source Comments Patient Care team informatio n (unrecognized section and content) Personnel Name: Navya COHN CNP Address: Address: [address] [facility], [address] (unrecognized sect ion and content) No Status Records FoundNo Status Records Found INFORMATION SOURCE (unrecogn ized section and content) DATE CREATED AUTHOR 03/27/2023 [facility] DATE CREATED AUTHOR AUTHOR'S ORGANIZ ATION 04/05/2023 [facility] FOR RECORDS PERTAINING TO PATIENTS WHO ARE [...] BE BASED ON THE PRIMARY CLINICAL RECORDS. [employer] provides no warranty or guarantee of the accuracy or completeness of information in this document.
--- NOTE | 2023-04-07 08:15 | CA_ITS ---
Patient Name: GRETA ELMORE MR#: [id number] : 2000 Exam Date: 04/07/2023 Ordering Doctor: AHSAN PABON CNP ECHOCARDIOGRAM REPORT PROCEDURE: CA ECHO DOPPLER COMPLETE INDICATIONS: Syncope, dizziness, tachycardia COMPARISON: None. DESCRIPTION: COMPLETE ECHOCARDIOGRAM Real-time transthoracic echocardiography with 2D, M-mode, spectral and color flow Doppler performed. QUALITY: Technical quality was good. LEFT VENTRICLE: Normal chamber size. Normal left ventricular wall thickness. LV EF: Global left ventricular systolic function is normal. Calculated left ventricular ejection fraction is 60%. No wall motion abnormalities. DIASTOLIC: Normal diastolic function. ATRIAL SEPTUM: Inadequately seen. LEFT ATRIUM: Normal chamber size. RIGHT ATRIUM: Normal chamber size. RIGHT VENTRICLE: Normal chamber size. Normal right ventricular systolic function. TRICUSPID VALVE: Normal mobility and thickness. Trivial regurgitation. No evidence of pulmonary hypertension. RVSP 34mmHg MITRAL VALVE: Normal mobility and thickness. No evidence of mitral valve stenosis. Trivial mitral regurgitation. AORTIC VALVE: Normal trileaflet appearance. No visible sclerosis. Normal leaflet mobility. No evidence of aortic valve stenosis. No aortic regurgitation. AORTIC ROOT: Normal diameter and appearance. PULMONIC VALVE: Normal thickness and mobility. No stenosis. Trivial regurgitation. PERICARDIUM: No pericardial effusion. IVC: Collapses with inspirations. Normal size. CONCLUSION: 1. Global left ventricular systolic function is normal; visually estimated ejection fraction is 60 to 65% 2. Normal right ventricular size and systolic function 3. Normal diastolic function 4. The left atrium is normal in size 5. No significant valvular abnormalities Adult Echocardiography Procedure Report Left Ventricle LVEDD (3.7 - 5.6 cm): 4.63 cm LVESD (2.2 - 4.0 cm): 3.13 cm LVIVS thickness (0.6 - 1.2 cm): 0.61 cm LVPW thickness (0.5 - 1.0 cm): 0.84 cm e': 0.18 m/s E - e': 4.70 LVOT Max Gradient: 4.06 mm[Hg] LVOT Area (cm2): 1.01 m/s Peak Velocity (LVOT): 1.01 m/s Mean Velocity (LVOT): 0.65 m/s LVOT Diameter 1.97 cm Left Ventricular Ejection Fraction: 59.98 % Left Atrium LA Volume Index (2D A2C): 23.88 ml/m2 Left Atrium Systolic Dimension: 3.32 cm Mitral Valve MV E to A Ratio: 1.28 Mitral Valve A-Wave Peak Velocity: 0.66 m/s Mitral Valve E-Wave Peak Velocity: 0.85 m/s Right Ventricle RV Internal Diastolic Dimension: 2.72 cm Aorta AO Root Diam: 2.41 cm Ascending Ao Diam: 2.16 cm Aortic Valve AoV Area (Peak David): 2.31 cm2, 2.31 cm2 AoV Area (VTI): 1.91 cm2, 1.89 cm2 Peak Velocity(Antegrade Flow): 1.33 m/s, 1.33 m/s Peak Gradient(Antegrade Flow): 7.03 mm[Hg], 7.03 mm[Hg] Mean Velocity(Antegrade Flow): 0.96 m/s, 0.97 m/s Mean Gradient(Antegrade Flow): 4.18 mm[Hg], 4.22 mm[Hg] Velocity Time Integral: 28.61 cm, 28.00 cm Tricuspid Valve Peak Velocity (Regurgitant Flow): 1.76 m/s, 2.64 m/s, 2.57 m/s, 2.80 m/s, 2.65 m/s Pulmonic Valve Mean Gradient: 4.51 mm[Hg], 4.65 mm[Hg], 4.80 mm[Hg] Mean Velocity: 1.01 m/s, 1.01 m/s, 1.02 m/s Peak Velocity: 1.39 m/s Peak Gradient: 7.03 mm[Hg], 7.91 mm[Hg], 8.32 mm[Hg] Right Atrium Right Atrium Systolic Pressure: 27.31 ml, 27.31 ml Dictated by: Stacey Denney M.D. on 04/07/2023 at 15:53 Approved by: Stacey Denney M.D. on 04/07/2023 at 15:56
== END 2023-04-07 07:05 | disposition home or self-care (01) ==
LOC: CARD 07:05
PROVIDERS: Visit Provider Nurse Practitioner Family
DX: R55 Syncope and collapse (principal); R42 Dizziness and giddiness; R00.0 Tachycardia, unspecified
CPT/HCPCS: 93306

== ENCOUNTER 2023-04-09 09:01 | Outpatient (OUT) | payer BC, SELFPAY ==
--- OUTSIDE RECORDS SUMMARY | 2023-04-09 09:06 | XMS_ITS | CCD ---
Author Name Unknown Address [address] [place] [address] Organization [facility] Care Team Providers Care Health Safety Specialist Name Role Phone Navya COHN Primary Care Physician AHSAN PABON Attending Unavailable Navya COHN Attending Unavailable Navya COHN Attending Unavailable Navya COHN Attending Unavailable Delia BUTLER Attending Unavailable Medications Current Medications Medication Drug Class(es) Dates Sig (Normalized) Sig (Original) meclizine hydrochloride 25 mg oral tablet (2 sources) Antiemetic Start: 03-15-2023 take 1 tablet by mouth three times daily as needed for dizziness meclizine 25 mg Tab 25 mg = 1 tab(s), Oral, TID, PRN for dizziness, # 60 tab(s), Refills(s) 1, Pharmacy: [facility]/pharmacy #[id number], 169.5, cm, 03/15/23 13:15:00 EST, Height/Length Dosing, 64.8, kg, 03/15/23 13:15:00 EST, Weight Dosing Start Date: 03/15/23 Status: Ordered Problems Active Problems Problem Classification Problem Date Documented Date Episodic/Chronic Cardiac dysrhythmias (6 sources) Tachyarrhythmia ; Translations: [Tachycardia, unspecified] Onset: 03-15-2023 Episodic Conditions associated with dizziness or vertigo (6 sources) Dizziness and giddiness; Translations: [Dizziness and giddiness] Onset: 03-15-2023 Episodic Other circulatory disease (4 sources) Postural orthostatic tachycardia syndrome ; Translations: [Postural orthostatic tachycardia syndrome [POTS]] Onset: 03-15-2023 Episodic Other nervous system disorders (2 sources) Paresthesia; Translations: [Paresthesia of skin] Onset: 03-15-2023 [...] Problem Date Documented Da te Episodic/Chronic Unclassified (2 sources) None (qualifier value) 07-27-2015 Results Test Name Value Interpretation Reference Range Facil ity Ambulatory Visit Summaryon 0 04-07-2023 Ambulatory Visit Summary HOLLIS ELMORE :2000 Visit Date:04/07/2023 Ambulatory Visit Instructions Your Diagnosis Sinus tachycardia POTS (postural orthostatic tachycardia syndrome) Vertigo Your Care Team Attending Physician - Navya COHN CNP Primary Care Physician - Navya COHN CNP This Is Your Medications List Contact prescribing physician if questions or concerns meclizine (meclizine 25 mg Tab) Procedures Performed None. Discharge Vitals Heart Rate (Peripheral) 93 Blood Pressure 118/72 Height 169.5 cm Height 67 in Weight 66.9 kg Weight 147.18 lb BMI 23.29 What to do next You Need to Schedule the Following Appointments Follow Up with Navya COHN CNP When: Only if needed Where: [facility] [place] [address]- Medications What How Much When Why Instructions Unchanged meclizine (meclizine 25 mg Tab) 1 Tablets By Mouth 3 times a day as needed for for dizziness Vertigo Contact prescribing physician if questions or concerns Allergies No Known Allergies Problems Ongoing - Any problem that you are currently receiving treatment for. Hand paresthesia POTS (postural orthostatic tachycardia syndrome) Sinus tachycardia Vertigo Historical - Any problem that you are no longer receiving treatment for. None Patient Survey You may receive a survey via text or e-mail asking about your office visit. Please share your experience with us by completing your survey. We appreciate your feedback and thank you for choosing us for your care. Normal [facility] Telemedicineon 03-24-2023 Telemedicine [id number] Hollis Elmore Karina 2000 Date Provider Department Center 03/24/2023 AHSAN DUMAS ANTONIA [facility] Family History Problem Relation Age of Onset No Known Problems Mother No Known Problems Father Family Status - Relation Status Age at Mother Father Level of Service:14131 HI OFFICE/OUTPATIENT NEW MODERATE MDM 45 MINUTES Reason for Visit and Comments: New Patient [632] Dizziness [967078] Normal [facility] Family Medicine Office/Clini c Noteon 03-16-2023 Family Medicine Office/Clinic Note Chief Complaint ER f/u HPI Staff [facility] ER F/U 03/11 Pt was evaluated twice at [facility] for dizziness. The work up at the first visit was essentially normal. Pt did have some PACs and short pauses on the monitoring tech. It was suspected that he either has POTS or some degree of cardiac arrhythmia, he was referred to their local tax adjuster. Second visit pt was tx with Meclizine [...] ER follow-up x2. He was seen at [facility] twice on 03/11/2023. Once for dizziness. [...] EKG itself was regular, sinus tachycardia, but monitoring tech showed PACs and some short pauses at [...] not receive a response until 03/24/2023 at [facility]. He was referred to tax adjuster, Dr. Denney. Upon discharge, the patient returned home and experienced severe discomfort, similar to his condition upon admission. He was reassured of his recovery and attempted to sleep through the discomfort. The following day, he was informed that h (more content not included)... [facility] Comment on above: Result Comment: Elec [...] PM EST With: Navya COHN CNP Where: [facility] Patient Educationon 03-15-19 Patient Education Pulmonary [...] Follow these instructions at home: ? Take qzvb-gku-zpnumgd and prescription medicines only as told by [...] important. Where to find more information ? [place] [employer]: www.lung.org ? Centers for Disease [...] provider. Document Revised: 11/11/2021 Document Reviewed: 11/11/2021 [employer] Patient Education ? 2022 [employer]. [facility] Consenton 03-10-2023 Consent [id number] #1.00TIFF [facility] In office Testingon 03-10-19 24 In office Testing [id number] 4#1.00TIFF [facility] In office Testingon 05-07-19 23 In office Testing [id number] 5#1.00CD:127 [facility] Vital Signs Date Time Vital Sign Value Performing Clinician Rodri murphy 04-07-2023 16:03-0500 Diastolic blood pressure 72 mm[Hg] Navya ROBUCK [facility] 04-07-2023 16:03-0500 Heart rate 93 /min Navya ROBUCK [facility] 04-07-2023 16:03-0500 SaO2% (BldA) [Mass fraction] 99 % Navya ROBUCK [facility] 04-07-2023 16:03-0500 Systolic blood pressure 118 mm[Hg] Navya ROBUCK [facility] 03-15-2023 13:14-0500 Blood Pressure Location Navya ROBUCK [facility] 03-15-2023 13:14-0500 Diastolic blood pressure 80 mm[Hg] Navya ROBUCK [facility] 03-15-2023 13:14-0500 Heart rate 110 /min Navya ROBUCK [facility] 03-15-2023 13:14-0500 SaO2% (BldA) [Mass fraction] 99 % Navya ROBUCK [facility] 03-15-2023 13:14-0500 Systolic blood pressure 132 mm[Hg] Navya ROBUCK [facility] Encounters Encounter Date Encounter Type Care Provider Facility Start: 04-07-2023 End: 04-08-2023 ambulatory Navya COHN Facility:[facility] Start: 04-07-2023 End: 04-07-2023 Patient encounter procedure Navya E ROBUCK [facility] Start: 03-24-2023 End: 03-24-2023 ambulatory AHSAN CM [facility] Start: 03-15-2023 End: 03-16-2023 ambulatory Navyageoffrey COHN Facility:[facility] Start: 03-15-2023 End: 03-15-2023 Patient encounter procedure Navya COHN [facility] Start: 03-10-2023 End: 03-11-2023 ambulatory Delia Rebeca BUTLER Facility:[facility] Start: 07-07-2022 ambulatory Navya E LALIT Facility :[facility] Start: 06-21-2022 ambulatory Navya ROBLONDON Facility:[facility] Procedures Date Procedure Procedure Detail Performing Clinician None (qualifier value) Navya COHN Immunizations Immunization Date Immunization Notes Care Provider Fa [facility] 03-05-2019 Human Papillomavirus 9-valent vaccine Navya COHN [facility] 11-27-2018 meningococcal polysaccharide (groups A, C, Y and W-135) diphtheria toxoid conjugate vaccine (MCV4P) Navya COHN [facility] 11-21-2018 HPV, unspecified formulation Navya ROBLONDON [facility] 11-21-2018 Human Papillomavirus 9-valent vaccine Navya ROBLONDON [facility] 09-14-2017 HPV, unspecified formulation Navya ROBLONDON [facility] 09-11-2013 tetanus toxoid, redu yunier diphtheria toxoid, and acellular pertussis vaccine, adsorbed Navya ROBUCK [facility] 05-05-2006 diphtheria, tetanus toxoids and acellular pertussis vaccine Navya ROBUCK [facility] 05-05-2006 measles, mumps and rubella virus vaccine Navya ROBUCK [facility] 05-05-2006 poliovirus vaccine, unspecified formulation Navya ROBUCK [facility] 11-07-2001 measles, mumps and rubella virus vaccine Navya ROBUCK [facility] 11-07-2001 varicella virus vaccine Martinez y ROBUCK [facility] 07-18-2001 hepatitis B vaccine, adult dosage Navya ROBUCK [facility] 05-03-2001 diphtheria, tetanus toxoids and acellular pertussis vaccine Navya ROBUCK [facility] 05-03-2001 haemophilus influenz ae type b vaccine, HbOC conjugate Navya ROBUCK [facility] 05-03-2001 pneumococcal conjuga te vaccine, 13 valent Navya ROBUCK [facility] 03-02-2001 diphtheria, tetanus toxoids and acellular pertussis vaccine Navya ROBUCK [facility] 03-02-2001 haemophilus influenz ae type b vaccine, HbOC conjugate Navya ROBUCK [facility] 03-02-2001 pneumococcal conjuga te vaccine, 13 valent Navya ROBUCK [facility] 03-02-2001 poliovirus vaccine, unspecified formulation Navya ROBUCK [facility] 2000 diphtheria, tetanus toxoids and acellular pertussis vaccine Navya ROBUCK [facility] 2000 haemophilus influenz ae type b vaccine, HbOC conjugate Navya COHN [facility] 2000 hepatitis B vaccine, adult dosage Navya ROBUCK [facility] 2000 poliovirus vaccine, unspecified formulation Navya [employer] [facility] 2000 hepatitis B vaccine, adult dosage Navya COHN [facility] NEGATED: Highlighted row has not occurred!03-15-2023 influenza virus vaccine, unspecified formulation Navya [employer] [facility] Payers Date Payer Category Payer Unknown [id number] 2000 Unknown [id number] 2000 Unknown [id number] 2000 Unknown [id number] Unknown [id number] Social History Date Type Detail Facility Tobacco Current vaping o r e-cigarette use Smokeless Tobacco Use:. Vaping, Ready to change: No. Household tobacco concerns: No. Yes [facility] Tobacco smoking status No Smoking Status Entered [facility] Sex Assigned At Male [facility] Progress note 03-24-2023 Note Date & Type Note Facility 03-24-2023 Note Cardiovascular Medic in[facility] SUBJECTIVE Chief Complaint Patient presents with New Patient Dizziness HPI Hollis Elmore is a 22 y.o. male is being evaluated as a new patient. He was recently at [facility] for c/o dizziness x2. He was dx'd [...] edema, dizziness/LH, palpitations, syncope. ER report from [facility] 03/11/2023 [facility] narrative: patient here for continuation of dizziness [...] head trauma injury or concussion syndromes recently. [facility] Narrative Medical decision making narrative: this patient [...] up with the primary care physician and tax adjuster. While he may have pots I don't feel comfortable or appropriate starting him on medications at this time. ER report from [facility] 03/10/2023 HPI narrative: This 22-year-old male presents [...] point he felt he may need to door puller because he was going to pass [...] drug or alcohol use. 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 He recently moved from [facility] to the [facility] and does not have a local family physician. He is not currently followed by a tax adjuster. He was noted to be tachycardic at triage. An EKG was done as a sinus ta (more content not included)... [facility] Progress note 03-24-2023 Note Date & Type Note Facility 03-24-2023 Note New patient being se en via telemedicine for follow up [facility] ED for dizziness. He was given RX [...] All other systems reviewed and are negative. [facility] Hospital Discharge instructions 03-15-2023 Note Date & Type Note Facility 03-15-2023 Hospital Discharg e instructions Follow Up Care 03/15/2023 13:51:03 With:Navya COHN CNP Address: [address] [place] [address]- When: only if needed [facility] Hospital Discharge instructions 03-15-2023 Note Date & [...] breathing. Follow these instructions at home: Take nkay-rbw-apvprby and prescription medicines only as told by [...] is important. Where to find more information [place] [employer]: www.lung.org Centers for Disease Control [...] provider. Document Revised: 11/11/2021 Document Reviewed: 11/11/2021 [employer] Patient Education 2022 [employer]. Follow Up Care 03/14/2023 07:21:58 With:Navya COHN CNP Address: [address] [place] [address]- When:Within 3 Week(s) [facility] Evaluation + Plan note Note Date & Type Note Facility Evaluation + Plan note Future Appointments Appointment Date:04/07/2023 04:20:00 PM Scheduled Provider:Navya COHN CNP Location:[facility] Appointment Type:[facility] Hospital course Narrative Note Date & Type Note Facility Hospital course Narrative No data available for this section [facility] Progress note Note Date & Type Note Facility Progress note No data available for this section [facility] Summary Purpose Family History No Family History Records Found Advance Directives No Advanced Directives Records FoundNo Advanced Directives Records Found Additional Source Comments Patient Care team informatio n (unrecognized section and content) Personnel Name: Navya COHN CNP Address: Address: [address] [place] [address]- Personnel Name: Navya COHN CNP Address: Address: [address] [place] [address]- (unrecognized sect ion and content) No Status Records FoundNo Status Records Found INFORMATION SOURCE (unrecogn ized section and content) DATE CREATED AUTHOR 03/27/2023 [facility] DATE CREATED AUTHOR AUTHOR'S ORGANIZ ATION 04/08/2023 [facility] FOR RECORDS PERTAINING TO PATIENTS WHO ARE [...] BE BASED ON THE PRIMARY CLINICAL RECORDS. [facility] [employer] [facility]. provides no warranty or guarantee of the accuracy or completeness of information in this document.
== END 2023-04-09 09:02 | disposition home or self-care (01) ==
LOC: LAB 09:03
PROVIDERS: Visit Provider Nurse Practitioner Family
DX: R55 Syncope and collapse (principal); R42 Dizziness and giddiness; R00.0 Tachycardia, unspecified
CPT/HCPCS: 36415; 82384; 82533